=== PATIENT | female | born 1985 | race Caucasian/White ===

== ENCOUNTER 2019-02-21 19:14 | Emergency (ER) | payer SELFPAY ==
[~2019-02-21] VITALS: Ht 160 cm; Wt 68.0 kg
[2019-02-21] MEDS ORDERED: KETOROLAC 30MG/ML VIAL IV STA (22:56)
[2019-02-21] MEDS ORDERED: SODIUM CHLORIDE 0.9% 1,000 ML IV ONE (22:56)
[2019-02-21] MEDS ORDERED: METOCLOPRAMIDE HCL 10MG/2ML VIAL IV ONE (23:00)
[2019-02-21 23:37] LABS: BASOPHILS % 0.5 % (0.0-2.0); EOSINOPHILS % 1.8 % (0.0-5.0); HEMATOCRIT. 37.3 % (36.0-48.0); HEMOGLOBIN. 13.1 g/dL (12.0-16.0); LYMPHOCYTES % 35.1 % (20.0-50.0); MEAN CORPUSCULAR HEMOGLOBIN 29.5 pg (28.0-32.0); MEAN CORPUSCULAR VOLUME 84.1 fL (81.0-99.0); MONOCYTES % 7.8 % (2.0-8.0); NEUTROPHILS % 54.8 % (40.0-76.0); PLATELET 198 x1000/uL (130-400); RED BLOOD CELL COUNT 4.43 mill/uL (4.2-5.4)
[2019-02-21 23:43] LABS: CHLORIDE 99 mEq/L (98-107)
[2019-02-22 00:03] LABS: HCG SCREEN NEGATIVE
[2019-02-22 01:45] VITALS: BP 120/75
== END 2019-02-22 01:50 | disposition home or self-care (01) ==
LOC: ER 19:14
DX: G43.909 Migraine, unspecified, not intractable, without status migrainosus (principal)
CPT/HCPCS: 36415; 70450; 80053; 81025; 83690; 84484; 84703; 85025; 85651; 96374; 96375; 99284; J1885; J2765; J7030